=== PATIENT | female | born 1965 | race Two or more races ===

== ENCOUNTER 2018-11-22 15:45 | Emergency (ER) | payer MEDICAID ==
[~2018-11-22] VITALS: Ht 160 cm; Wt 71.2 kg
[2018-11-22 16:19] VITALS: Ht 160 cm; Wt 71.2 kg
[2018-11-22 17:36] LABS: PLATELET COUNT 307 x10^3mcL (130-400)
[2018-11-22 17:41] LABS: RED CELL DISTRIBUTION WIDTH 17.5 % (11.5-14.5)
[2018-11-22 17:42] LABS: CALCIUM 8.8 mg/dL (8.5-10.1); CARBON DIOXIDE 23.2 mmol/L (21-32); CHLORIDE SERUM 102 mmol/L (98-107); CREATININE SERUM 0.8 mg/dL (0.6-1.0); GFR1 > 60 mL/min; GLUCOSE SERUM 82 mg/dL (74-106); POTASSIUM SERUM 3.9 mmol/L (3.5-5.1); SODIUM SERUM 135 mmol/L (136-145)
[2018-11-22 17:48] LABS: ALBUMIN 3.4 g/dL (3.4-5.0); ALKALINE PHOSPHATASE 98 U/L (46-116); ALT/SGPT 27 U/L (14-59); AST/SGOT 22 U/L (15-37); BILIRUBIN TOTAL 0.4 mg/dL (0.20-1.00)
[2018-11-22 17:49] LABS: TOTAL PROTEIN, SERUM 8.9 g/dL (6.4-8.2)
[2018-11-22 18:08] LABS: BAND NEUTROPHIL 3 % (0-10); METAMYELOCTE 1 % (0-2); MONOCYTE 7 % (0-7); SEGMENTED NEUTROPHILS 46 % (37-75)
[2018-11-22 18:11] LABS: PLATELET MORPHOLOGY PLATELETS NORMAL; rbc morphology (normal/abnorm) ABNORMAL (NORMAL)
[2018-11-22 23:10] VITALS: BP 145/96
== END 2018-11-22 23:10 | disposition short-term general hospital (02) ==
LOC: ED 15:45
PROVIDERS: Emergency Medicine
DX: J98.01 Acute bronchospasm (principal)
CPT/HCPCS: 83880; J0696; J2930; J7030; J7613; J7644

== ENCOUNTER 2019-01-28 10:01 | Emergency (ER) | payer MEDICAID ==
[~2019-01-28] VITALS: Ht 160 cm; Wt 70.8 kg
[2019-01-28 10:04] VITALS: Ht 160 cm; Wt 70.8 kg
[2019-01-28 12:32] VITALS: BP 112/70
== END 2019-01-28 12:00 | disposition home or self-care (01) ==
LOC: ED 10:01
DX: J98.01 Acute bronchospasm (principal)
CPT/HCPCS: J7512; J7613; J7644; Q0092